=== PATIENT | male | born 1990 | race Caucasian/White ===

== ENCOUNTER 2024-02-12 12:11 | Emergency (ER) | payer BC ==
[2024-02-12] MEDS: Ketorolac 60 MG/2 ML SDV IM ONE (13:38)
[2024-02-12] MEDS: methylPREDNISolone Sodium Succinate 125 MG/2 ML SDV IM ONE (13:41)
== END 2024-02-12 16:05 | disposition home or self-care (01) ==
LOC: JD.ED 12:11
DX: S83.91XA Sprain of unspecified site of right knee, initial encounter (principal); Z88.0 Allergy status to penicillin; X58.XXXA Exposure to other specified factors, initial encounter
CPT/HCPCS: 73564; 96372; 99283; J1885; J2930